=== PATIENT | male | born 1990 | race Hispanic/Latino ===

== ENCOUNTER 2025-03-24 01:47 | Emergency (ER) | payer SELFPAY ==
[~2025-03-24] VITALS: Ht 167.6 cm; Wt 104.3 kg
[2025-03-24 01:50] VITALS: TEMP 98.8
[2025-03-24 02:31] LABS: BASOPHILS % 0.3 % (0.0-1.0); EOSINOPHILS % 1.2 % (0.0-6.0); LYMPHOCYTES % 19.2 % (18.0-39.1); MONOCYTES % 11.5 % (4.4-11.3); NEUTROPHILS % 67.4 % (38.7-80.0); RED CELL DISTRIBUTION WIDTH 12.9 % (11.7-14.4)
[2025-03-24 02:48] LABS: EST GLOMERULAR FILTRATION RATE 111.0 ML/MIN (>=60)
[2025-03-24] MEDS: SODIUM CHLORIDE 0.9% 1000ML 1,000 ML IV STA (02:51)
[2025-03-24] MEDS: ONDANSETRON HCL INJ 2MG/ML 2ML 2 MG/ML VIAL IV STA ×2 (02:51→04:16)
[2025-03-24 03:27] LABS: LEUKOCYTE ESTERASE ,URINE TRACE (NEGATIVE); PROTEIN,URINE DIPSTICK NEGATIVE (NEGATIVE); URINE UROBILINOGEN 1 mg/dL (0.2 - 1)
[2025-03-24 03:41] LABS: EPITHELIAL CELLS,URINE FEW /LPF
[2025-03-24 04:10] VITALS: PULSE 97; RESP 17
[2025-03-24] MEDS ORDERED: METRONIDAZOLE500 MG PO (04:30)
[2025-03-24] MEDS ORDERED: DICYCLOMINE HCL10 MG PO (04:30)
[2025-03-24] MEDS ORDERED: ONDANSETRON ODT4 MG PO (04:30)
[2025-03-24] MEDS ORDERED: CIPRO500 MG PO (04:30)
[2025-03-24] MEDS ORDERED: IOPAMIDOL 370 MG/ML 100 ML INFUS..BTL INJ ONE (05:06)
[2025-03-24 05:13] VITALS: BP 112/61; PULSE 93; RESP 18; O2SAT 99
== END 2025-03-24 04:57 | disposition home or self-care (01) ==
LOC: EDBD 01:47 → ER 01:53
DX: R10.32 Left lower quadrant pain (principal); K62.89 Other specified diseases of anus and rectum; R19.7 Diarrhea, unspecified; R11.0 Nausea; B20 Human immunodeficiency virus [HIV] disease
CPT/HCPCS: 36415; 74177; 80053; 81001; 83690; 85025; 99284; J2405; J7030; Q9967